=== PATIENT | female | born 1990 | race American Indian/Alaskan Native ===

== ENCOUNTER 2018-08-26 21:13 | Emergency (ER) | payer MEDICAID ==
[2018-08-26 23:24] VITALS: BP 99/75
--- NOTE | 2018-08-27 01:51 | Emergency Department Report ---
ED Rash HPI - HPI Chief Complaint: Skin Rash Stated Complaint: RASH/FRANCIS Time Seen by Provider: 08/27/18 01:28 Location: Neck, Upper Extremities, Lower Extremities Suspected Cause: Unknown (scabies exposure ) Rash Symptoms: Yes Itching, Yes Peeling, No Facial Swelling, No Tongue/Oral Swelling, No Breathing Difficulties, No Choking Sensation, No Wheezing/Dyspnea, No Blistering, No Fever, No Lightheaded, No Malaise, No Myalgias Severity: moderate Other History: scabies exposure ED Review of Systems ROS: Stated complaint: RASH/FRANCIS Other details as noted in HPI Constitutional: denies: chills, fever Eyes: denies: eye pain, eye discharge, vision change ENT: denies: ear pain, throat pain Respiratory: denies: cough, shortness of breath, wheezing Cardiovascular: denies: chest pain, palpitations Endocrine: no symptoms reported Gastrointestinal: denies: abdominal pain, nausea, diarrhea Genitourinary: denies: urgency, dysuria, discharge Musculoskeletal: denies: back pain, joint swelling, arthralgia Skin: rash (bilat hands feet waistline neck face exscoriations pruritis dry flaky ), pruritus Neurological: denies: headache, weakness, paresthesias Psychiatric: denies: anxiety, depression Hematological/Lymphatic: denies: easy bleeding, easy bruising ED Past Medical Hx - Past Medical History Previous Medical History?: No - Surgical History Past Surgical History?: Yes Additional Surgical History: - Social History Smoking Status: Current Every Day Smoker Substance Use Type: None - Medications Home Medications: Home Medications Medication Instructions Recorded Confirmed Last Taken Type Permethrin 5% [Acticin 5% CREAM] 1 applicatio TP ONCE #1 tube 08/27/18 Unknown Rx Piperonyl Butoxide/Pyrethrins [Rid 177 ml TP ONCE #1 bottle 08/27/18 Unknown Rx Essential Lice Kit] Triamcinolone Aceton 0.1% (Nf) 1 applic TP BID 14 Days #1 tube 08/27/18 Unknown Rx [Kenalog (NF)] hydrOXYzine HCL [Atarax] 25 mg PO Q6HR PRN #30 tablet 08/27/18 Unknown Rx Rash Exam - Exam General: Vital signs noted. No distress. Alert and acting appropriately. HEENT: No Periorbital Edema, No Conjuctival Injection, No Chemosis, No Perioral Edema, No Tongue Edema, No Uvular Edema, No Compromised Airway, No Drooling Lungs: Yes Good Air Exchange (Normal Breath Sounds), No Wheezes, No Ronchi, No Stridor, No Cough, No Labored Respirations, No Retractions, No Use of Accessory Muscles, No Other Abnormal Lung Sounds Heart: Yes Regular, No Murmur Skin: Yes Urticarial Rash, Yes Excoriations, Yes Weeping (clear ), Yes Erythema, Yes Encrustations, No Tenderness, No Edema Other: Positive: Abdomen Normal, Neurologic Normal, Musculoskeletal Normal ED Course Vital Signs 08/26/18 23:21 Temperature 97.8 F Pulse Rate 73 Respiratory 18 Rate Blood Pressure 99/75 O2 Sat by Pulse 100 Oximetry ED Medical Decision Making - Medical Decision Making this is a scabies exposure mother or 7 children 5 have been treated she presents with 2 children and self to be treated for scabies rash , pt given directions for permethrin tx, linen, clothing, matresses, and furniture care , pt verbalized agreement and under standing of discharge plan. Critical care attestation.: If time is entered above; I have spent that time in minutes in the direct care of this critically ill patient, excluding procedure time. ED Disposition Clinical Impression: Scabies exposure Disposition: - TO HOME OR SELFCARE Is pt being admited?: No Does the pt Need Aspirin: No Condition: Stable Instructions: Scabies (ED) Prescriptions: Permethrin 5% [Acticin 5% CREAM] 1 applicatio TP ONCE #1 tube hydrOXYzine HCL [Atarax] 25 mg PO Q6HR PRN #30 tablet PRN Reason: Itching Triamcinolone Aceton 0.1% (Nf) [Kenalog (NF)] 1 applic TP BID 14 Days #1 tube Piperonyl Butoxide/Pyrethrins [Rid Essential Lice Kit] 177 ml TP ONCE #1 bottle Referrals: [facility] [Outside] - 3-5 Days Forms: Work/School Release Form(ED) Time of Disposition: 01:56
== END 2018-08-27 02:00 | disposition home or self-care (01) ==
LOC: ED 21:13
DX: L29.9 Pruritus, unspecified (principal); Z20.89 Contact with and (suspected) exposure to other communicable diseases; F17.200 Nicotine dependence, unspecified, uncomplicated
CPT/HCPCS: 99282

== ENCOUNTER 2018-08-31 13:09 | Emergency (ER) | payer MEDICAID, OTHER ==
[2018-08-31 13:31] VITALS: BP 132/92
--- NOTE | 2018-08-31 13:32 | Emergency Department Report ---
Chief Complaint: Dental/Oral Stated Complaint: INFECTION ON GUMS/HEADACHE/VOMITING Time Seen by Provider: 08/31/18 13:29 - HPI History of Present Illness: pt presents to the ED left sided dental pain states she had a dental abscess and tooth extraction on 08/25/18 states she completed her amoxcillin yesterday but does not seem to be getting better pt also treated for scabies states that it has not gotten better [facility] MSE screening note: Focused history and physical exam performed. ED Disposition for MSE Condition: Stable
--- NOTE | 2018-08-31 14:45 | Emergency Department Report ---
ED ENT HPI - General Chief complaint: Dental/Oral Stated complaint: INFECTION ON GUMS/HEADACHE/VOMITING Time Seen by Provider: 08/31/18 13:29 Source: patient Mode of arrival: Ambulatory Limitations: No Limitations - History of Present Illness Initial comments: Patient is a 28-year-old female who is 4 days status post tooth extraction of tooth #13 who's complaining of pain at the dental extraction site. Patient states that her gums are now swollen and there is some ulceration of the gums. Patient states that the pain is 8 out of 10 in severity. She was placed on 4 days of amoxicillin which is not helping her symptoms. Patient denies having any pain meds at this time. Patient also states she has a rash to the face. She denies any nausea vomiting diarrhea fevers or chills. Patient states the rash in the face worsened after being treated for scabies. - Related Data Previous Rx's Medication Instructions Recorded Last Taken Type Permethrin 5% [Acticin 5% CREAM] 1 applicatio TP ONCE #1 tube 08/27/18 Unknown Rx Piperonyl Butoxide/Pyrethrins [Rid 177 ml TP ONCE #1 bottle 08/27/18 Unknown Rx Essential Lice Kit] Triamcinolone Aceton 0.1% (Nf) 1 applic TP BID 14 Days #1 tube 08/27/18 Unknown Rx [Kenalog (NF)] hydrOXYzine HCL [Atarax] 25 mg PO Q6HR PRN #30 tablet 08/27/18 Unknown Rx Chlorhexidine Mouthwash [Peridex] 15 ml MM BID #1 bottle 08/31/18 Unknown Rx Clindamycin [Clindamycin CAP] 300 mg PO Q8H #21 cap 08/31/18 Unknown Rx Ibuprofen [Ibu] 800 mg PO Q8H PRN #20 tablet 08/31/18 Unknown Rx Ondansetron [Zofran Odt] 4 mg PO Q8HR #10 tab.rapdis 08/31/18 Unknown Rx Allergies Allergy/AdvReac Type Severity Reaction Status Date / Time diphenhydramine Allergy Unknown Verified 08/26/18 21:16 [From Benadryl] tramadol Allergy Itching Verified 08/26/18 23:24 ED Dental HPI - General Chief complaint: Dental/Oral Stated complaint: INFECTION ON GUMS/HEADACHE/VOMITING Time Seen by Provider: 08/31/18 13:29 Source: patient Mode of arrival: Ambulatory Limitations: No Limitations - Related Data Previous Rx's Medication Instructions Recorded Last Taken Type Permethrin 5% [Acticin 5% CREAM] 1 applicatio TP ONCE #1 tube 08/27/18 Unknown Rx Piperonyl Butoxide/Pyrethrins [Rid 177 ml TP ONCE #1 bottle 08/27/18 Unknown Rx Essential Lice Kit] Triamcinolone Aceton 0.1% (Nf) 1 applic TP BID 14 Days #1 tube 08/27/18 Unknown Rx [Kenalog (NF)] hydrOXYzine HCL [Atarax] 25 mg PO Q6HR PRN #30 tablet 08/27/18 Unknown Rx Chlorhexidine Mouthwash [Peridex] 15 ml MM BID #1 bottle 08/31/18 Unknown Rx Clindamycin [Clindamycin CAP] 300 mg PO Q8H #21 cap 08/31/18 Unknown Rx Ibuprofen [Ibu] 800 mg PO Q8H PRN #20 tablet 08/31/18 Unknown Rx Ondansetron [Zofran Odt] 4 mg PO Q8HR #10 tab.rapdis 08/31/18 Unknown Rx Allergies Allergy/AdvReac Type Severity Reaction Status Date / Time diphenhydramine Allergy Unknown Verified 08/26/18 21:16 [From Benadryl] tramadol Allergy Itching Verified 08/26/18 23:24 ED Review of Systems ROS: Stated complaint: INFECTION ON GUMS/HEADACHE/VOMITING Other details as noted in HPI Comment: All other systems reviewed and negative ED Past Medical Hx - Past Medical History Previous Medical History?: No - Surgical History Additional Surgical History: - Social History Smoking Status: Never Smoker Substance Use Type: None - Medications Home Medications: Home Medications Medication Instructions Recorded Confirmed Last Taken Type Permethrin 5% [Acticin 5% CREAM] 1 applicatio TP ONCE #1 tube 08/27/18 Unknown Rx Piperonyl Butoxide/Pyrethrins [Rid 177 ml TP ONCE #1 bottle 08/27/18 Unknown Rx Essential Lice Kit] Triamcinolone Aceton 0.1% (Nf) 1 applic TP BID 14 Days #1 tube 08/27/18 Unknown Rx [Kenalog (NF)] hydrOXYzine HCL [Atarax] 25 mg PO Q6HR PRN #30 tablet 08/27/18 Unknown Rx Chlorhexidine Mouthwash [Peridex] 15 ml MM BID #1 bottle 08/31/18 Unknown Rx Clindamycin [Clindamycin CAP] 300 mg PO Q8H #21 cap 08/31/18 Unknown Rx Ibuprofen [Ibu] 800 mg PO Q8H PRN #20 tablet 08/31/18 Unknown Rx Ondansetron [Zofran Odt] 4 mg PO Q8HR #10 tab.rapdis 08/31/18 Unknown Rx ED Physical Exam - General Limitations: No Limitations General appearance: alert, in no apparent distress - Head Head exam: Present: atraumatic, normocephalic - Eye Eye exam: Present: normal appearance - ENT ENT exam: Present: mucous membranes moist - Expanded ENT Exam Expanded Mouth exam: Present: tongue normal Teeth exam: Present: dental tenderness # Throat exam: Positive: normal inspection (tooth #13 has been extracted. there is some small ulceration present. the gums are swollen and the socket has some local necrotic tissue present without active purulent drainage) - Neck Neck exam: Present: normal inspection - Respiratory Respiratory exam: Present: normal lung sounds bilaterally. Absent: respiratory distress, wheezes, rales, rhonchi - Cardiovascular Cardiovascular Exam: Present: regular rate, normal rhythm. Absent: systolic murmur, diastolic murmur, rubs, gallop - GI/Abdominal GI/Abdominal exam: Present: soft, normal bowel sounds. Absent: distended, tenderness, guarding - Extremities Exam Extremities exam: Present: normal inspection - Back Exam Back exam: Present: normal inspection - Neurological Exam Neurological exam: Present: alert, oriented X3 - Psychiatric Psychiatric exam: Present: normal affect, normal mood - Skin Skin exam: Present: warm, dry, intact, normal color, rash (hyperpigmented rash on the bilateral maxillary areas.) ED Course Vital Signs 08/31/18 13:28 Temperature 98.2 F Pulse Rate 96 H Respiratory 16 Rate Blood Pressure 132/92 O2 Sat by Pulse 99 Oximetry ED Medical Decision Making - Medical Decision Making Patient does appear to have an infection of the extraction site. Patient started on clindamycin and the patient was given Magic mouthwash as well. Patient also can be referred to dermatology for her facial rash. Rash is hyperpigmented rash and does not appear to be allergic in nature. Critical care attestation.: If time is entered above; I have spent that time in minutes in the direct care of this critically ill patient, excluding procedure time. ED Disposition Clinical Impression: Infection of tooth socket, Facial dermatitis Disposition: TO HOME OR SELFCARE Is pt being admited?: No Does the pt Need Aspirin: No Condition: Stable Referrals: [facility] [Provider Group] - 3-5 Days Time of Disposition: 14:48
== END 2018-08-31 14:57 | disposition home or self-care (01) ==
LOC: ED 13:09
DX: M27.3 Alveolitis of jaws (principal); L98.1 Factitial dermatitis; Z88.5 Allergy status to narcotic agent
CPT/HCPCS: 99282

== ENCOUNTER 2018-10-12 21:31 | Emergency (ER) | payer SELFPAY ==
[2018-10-12 21:41] VITALS: BP 129/95
[2018-10-12] MEDS ORDERED: NORCO 5/325 PO ONE (22:09)
[2018-10-12] MEDS ORDERED: IBUPROFEN PO ONE ×2 (22:09→22:10)
[2018-10-12] MEDS ORDERED: NORCO 5/325 ONE (22:10)
--- NOTE | 2018-10-13 00:51 | Emergency Department Report ---
ED Lower Extremity HPI - General Chief Complaint: Medical Clearance Stated Complaint: RT KNEE PAIN TAILBONE PAIN Source: patient Mode of arrival: Ambulatory Limitations: No Limitations - History of Present Illness Initial Comments: This is a 28-year-old [place] female presents to the emergency room with right knee and tailbone pain from a fall last Wednesday. Patient states she was seen in this emergency room and diagnosed with a tibial plateau fracture. Patient stated she had an appointment in orthopedic surgeon at [facility] but appointment continue to be rescheduled. She reports increasing pain. Patient states she is not applying weight to right lower extremity and using crutches as instructed. MD Complaint: knee injury (right) Onset/Timin -: days(s) Injury: Knee: Right Type of Injury: hyperflexion Place: street/outdoors Severity: severe Severity scale (0 -10): 10 Improves With: nothing Context: fall Associated Symptoms: snap/pop sensation, unable to bear weight, ambulatory - Related Data Previous Rx's Medication Instructions Recorded Last Taken Type Permethrin 5% [Acticin 5% CREAM] 1 applicatio TP ONCE #1 tube 08/27/18 Unknown Rx Piperonyl Butoxide/Pyrethrins [Rid 177 ml TP ONCE #1 bottle 08/27/18 Unknown Rx Essential Lice Kit] Triamcinolone Aceton 0.1% (Nf) 1 applic TP BID 14 Days #1 tube 08/27/18 Unknown Rx [Kenalog (NF)] hydrOXYzine HCL [Atarax] 25 mg PO Q6HR PRN #30 tablet 08/27/18 Unknown Rx Chlorhexidine Mouthwash [Peridex] 15 ml MM BID #1 bottle 08/31/18 Unknown Rx Clindamycin [Clindamycin CAP] 300 mg PO Q8H #21 cap 08/31/18 Unknown Rx Ibuprofen [Ibu] 800 mg PO Q8H PRN #20 tablet 08/31/18 Unknown Rx Ondansetron [Zofran Odt] 4 mg PO Q8HR #10 tab.rapdis 08/31/18 Unknown Rx Ketorolac [Toradol] 10 mg PO Q6H PRN #14 tablet 10/07/18 Unknown Rx oxyCODONE /ACETAMINOPHEN [Percocet 1 tab PO Q6HR PRN #8 tablet 10/13/18 Unknown Rx 5/325 mg] Allergies Allergy/AdvReac Type Severity Reaction Status Date / Time diphenhydramine Allergy Unknown Verified 10/07/18 19:23 [From Benadryl] tramadol Allergy Itching Verified 10/07/18 19:23 ED Review of Systems ROS: Stated complaint: RT KNEE PAIN TAILBONE PAIN Other details as noted in HPI Constitutional: denies: chills, fever Respiratory: denies: cough, shortness of breath, wheezing Cardiovascular: denies: chest pain, palpitations Gastrointestinal: denies: abdominal pain, nausea, diarrhea Musculoskeletal: arthralgia (right knee pain). denies: back pain, joint swelling Skin: denies: rash, lesions Neurological: denies: headache, weakness, paresthesias Psychiatric: denies: anxiety, depression ED Past Medical Hx - Surgical History Additional Surgical History: - Social History Smoking Status: Never Smoker - Medications Home Medications: Home Medications Medication Instructions Recorded Confirmed Last Taken Type Permethrin 5% [Acticin 5% CREAM] 1 applicatio TP ONCE #1 tube 08/27/18 Unknown Rx Piperonyl Butoxide/Pyrethrins [Rid 177 ml TP ONCE #1 bottle 08/27/18 Unknown Rx Essential Lice Kit] Triamcinolone Aceton 0.1% (Nf) 1 applic TP BID 14 Days #1 tube 08/27/18 Unknown Rx [Kenalog (NF)] hydrOXYzine HCL [Atarax] 25 mg PO Q6HR PRN #30 tablet 08/27/18 Unknown Rx Chlorhexidine Mouthwash [Peridex] 15 ml MM BID #1 bottle 08/31/18 Unknown Rx Clindamycin [Clindamycin CAP] 300 mg PO Q8H #21 cap 08/31/18 Unknown Rx Ibuprofen [Ibu] 800 mg PO Q8H PRN #20 tablet 08/31/18 Unknown Rx Ondansetron [Zofran Odt] 4 mg PO Q8HR #10 tab.rapdis 08/31/18 Unknown Rx Ketorolac [Toradol] 10 mg PO Q6H PRN #14 tablet 10/07/18 Unknown Rx oxyCODONE /ACETAMINOPHEN [Percocet 1 tab PO Q6HR PRN #8 tablet 10/13/18 Unknown Rx 5/325 mg] ED Physical Exam - General Limitations: No Limitations General appearance: alert, in no apparent distress - Respiratory Respiratory exam: Present: normal lung sounds bilaterally. Absent: respiratory distress - Cardiovascular Cardiovascular Exam: Present: regular rate, normal rhythm. Absent: systolic murmur, diastolic murmur, rubs, gallop - GI/Abdominal GI/Abdominal exam: Present: soft, normal bowel sounds - Expanded Lower Extremity Exam Right Hip exam: Present: normal inspection, full ROM Upper Leg exam: Present: normal inspection, full ROM Knee exam: Present: tenderness, swelling, pain w/ pronation/supination, posterior draw sign, full knee extension. Absent: full ROM, abrasion, laceration, ecchymosis, deformity, crepidus, dislocation, erythema, effusion Lower Leg exam: Present: normal inspection, full ROM Ankle exam: Present: normal inspection, full ROM Foot/Toe exam: Present: normal inspection, full ROM Neuro vascular tendon exam: Present: no vascular compromise. Absent: extremity cold to touch, pallor, abnormal 2-point discrimination Gait: Positive: unable to bear weight - Neurological Exam Neurological exam: Present: alert, oriented X3 - Psychiatric Psychiatric exam: Present: normal affect, normal mood - Skin Skin exam: Present: warm, dry, intact, normal color. Absent: rash ED Course Vital Signs 10/12/18 10/13/18 21:39 03:14 Temperature 100.1 F H 98.6 F Pulse Rate 100 H 79 Respiratory 18 17 Rate Blood Pressure 129/95 O2 Sat by Pulse 100 100 Oximetry ED Lower Extremity MDM - Medical Decision Making Patient was examined by me. Vitals are normal and patient is in no acute distress. Patient seen in this ER on 10/08/18 and diagnosed with an acute comminuted depressed right medial tibial plateau fracture. Patient states she does not have insurance and having a hard time getting in to orthopedics for follow-up. Patient denies new symptoms. She is requesting pain control until she follow up with orthopedics. Start [place] 5/325 mg by mouth every 6 hours when necessary #8, 0 refills. Referral to orthopedics for continued care. Continue nonweightbearing to right lower extremity. Informed of risk and possible decreased blood supply to right lower extremity if she doesn't follow up with Orthopedics soon. She agrees with ER plan. Patient discharged home in stable condition. Follow up with PCP in 2-3 days. Critical care attestation.: If time is entered above; I have spent that time in minutes in the direct care of this critically ill patient, excluding procedure time. ED Disposition Clinical Impression: Right knee pain Qualifiers: Chronicity: acute Qualified Code(s): M25.561 - Pain in right knee Tibial plateau fracture, right Qualifiers: Encounter type: subsequent encounter Fracture type: closed Fracture healing: with delayed healing Qualified Code(s): S82.141G - Displaced bicondylar fracture of right tibia, subsequent encounter for closed fracture with delayed healing Disposition: TO HOME OR SELFCARE Is pt being admited?: No Does the pt Need Aspirin: No Condition: Stable Instructions: Arthralgia (ED) Additional Instructions: Follow-up with orthopedics from the referrals below. Return to the emergency room if warmth, increased swelling, redness, uncontrolled pain. Prescriptions: oxyCODONE /ACETAMINOPHEN [Percocet 5/325 mg] 1 tab PO Q6HR PRN #8 tablet PRN Reason: Pain Referrals: [facility] [Provider Group] - 3-5 Days [facility] [Provider Group] - 3-5 Days COLTEN GALLAGHER MD [Staff Physician] - 3-5 Days Forms: Accompanied Note, Work/School Release Form(ED) Time of Disposition: 02:29
[2018-10-13] MEDS ORDERED: TYLENOL ONE (03:03)
[2018-10-13] MEDS ORDERED: TYLENOL PO ONE (03:04)
== END 2018-10-13 03:14 | disposition home or self-care (01) ==
LOC: ED 21:31
DX: S82.141G Displaced bicondylar fracture of right tibia, subsequent encounter for closed fracture with delayed healing (principal); Z88.8 Allergy status to other drugs, medicaments and biological substances; Z88.6 Allergy status to analgesic agent; Y92.89 Other specified places as the place of occurrence of the external cause

== ENCOUNTER 2018-11-06 19:13 | Emergency (ER) | payer MEDICAID, OTHER ==
--- NOTE | 2018-11-06 19:36 | Emergency Department Report ---
Blank Doc - Documentation Documentation: This is a 28-year-old female that presents with abdominal pain with n/v. Also has right knee pain and see a orthopedic for. This initial assessment/diagnostic orders/clinical plan/treatment(s) is/are subject to change based on patient's health status, clinical progression and re- assessment by fellow clinical providers in the ED. Further treatment and workup at subsequent clinical providers discretion. Patient/guardians urged not to elope from the ED as their condition may be serious if not clinically assessed and managed. Initial orders include: 1- Patient sent to [facility] for further evaluation and treatment 2- labs 3- UA
[2018-11-06 20:16] LABS: Alanine Aminotransferase 6 units/L (7-56); Albumin 4.1 g/dL (3.9-5); BUN/Creatinine Ratio 17; Blood Urea Nitrogen 12 mg/dL (7-17); Calcium 9.1 mg/dL (8.4-10.2); Hemolysis Index 1
[2018-11-06 20:41] LABS: Basophils % (Auto) 0.8 % (0.0-1.8); Eosinophils # (Auto) 0.1 K/mm3 (0.0-0.4); Eosinophils % (Auto) 1.4 % (0.0-4.3); Hematocrit 34.8 % (30.3-42.9); Hemoglobin 11.8 gm/dl (10.1-14.3); Lymphocytes # (Auto) 1.8 K/mm3 (1.2-5.4); Lymphocytes % (Auto) 29.8 % (13.4-35.0); Mean Corpuscular HGB Conc 34 % (30-34); Mean Corpuscular Volume 74 fl (79-97); Monocytes # (Auto) 0.3 K/mm3 (0.0-0.8); Monocytes % (Auto) 4.9 % (0.0-7.3); Platelet Count 221 K/mm3 (140-440); Red Blood Count 4.74 M/mm3 (3.65-5.03); Red Cell Distribution Width 20.9 % (13.2-15.2)
[2018-11-06] MEDS ORDERED: ZOFRAN ODT PO ONE (21:03)
[2018-11-06] MEDS ORDERED: ULTRAM PO ONE (21:03)
[2018-11-06] MEDS ORDERED: BENTYL IM ONE (21:05)
--- NOTE | 2018-11-06 21:24 | Emergency Department Report ---
ED N/V/D HPI - General Chief complaint: Abdominal Pain Stated complaint: ABD PAIN/EMESIS Time Seen by Provider: 11/06/18 19:35 Source: patient Mode of arrival: Ambulatory Limitations: No Limitations - History of Present Illness Initial comments: pt is a 28 y/o aaf who presents for n/v x 1 week LMP 2 weeks is s/p tubaligation there is no vaginal bleeding or discharge no fever or chlls state she is taking percocet for knee pain rx by ortho, denies constipation or diarrhea last n/v yesterday last po intake this am MD complaint: nausea, vomiting, other (cramp ) Description of Vomiting: food contents Description of Diarrhea: other (none ) Associated Abdominal Pain: Yes (cramping) Location: LLQ Severity: mild Pain Scale: 2 Quality: cramping Consistency: intermittent Improves with: none Worsens with: eating Associated Symptoms: nausea/vomiting - Related Data Previous Rx's Medication Instructions Recorded Last Taken Type Permethrin 5% [Acticin 5% CREAM] 1 applicatio TP ONCE #1 tube 08/27/18 Unknown Rx Piperonyl Butoxide/Pyrethrins [Rid 177 ml TP ONCE #1 bottle 08/27/18 Unknown Rx Essential Lice Kit] Triamcinolone Aceton 0.1% (Nf) 1 applic TP BID 14 Days #1 tube 08/27/18 Unknown Rx [Kenalog (NF)] hydrOXYzine HCL [Atarax] 25 mg PO Q6HR PRN #30 tablet 08/27/18 Unknown Rx Chlorhexidine Mouthwash [Peridex] 15 ml MM BID #1 bottle 08/31/18 Unknown Rx Clindamycin [Clindamycin CAP] 300 mg PO Q8H #21 cap 08/31/18 Unknown Rx Ibuprofen [Ibu] 800 mg PO Q8H PRN #20 tablet 08/31/18 Unknown Rx Ondansetron [Zofran Odt] 4 mg PO Q8HR #10 tab.rapdis 08/31/18 Unknown Rx Ketorolac [Toradol] 10 mg PO Q6H PRN #14 tablet 10/07/18 Unknown Rx oxyCODONE /ACETAMINOPHEN [Percocet 1 tab PO Q6HR PRN #8 tablet 10/13/18 Unknown Rx 5/325 mg] Acetaminophen [Acetaminophen TAB] 1,000 mg PO Q6HR PRN #30 tablet 11/07/18 Unknown Rx Dicyclomine [Bentyl] 10 mg PO QID PRN #30 capsule 11/07/18 Unknown Rx Ondansetron [Zofran Odt] 4 mg PO Q8HR PRN #12 tab.rapdis 11/07/18 Unknown Rx Allergies Allergy/AdvReac Type Severity Reaction Status Date / Time diphenhydramine Allergy Unknown Verified 10/07/18 19:23 [From Benadryl] tramadol Allergy Itching Verified 10/07/18 19:23 ED Review of Systems ROS: Stated complaint: ABD PAIN/EMESIS Other details as noted in HPI Constitutional: denies: chills, fever Eyes: denies: eye pain, eye discharge, vision change ENT: denies: ear pain, throat pain Respiratory: denies: cough, shortness of breath, wheezing Cardiovascular: denies: chest pain, palpitations Endocrine: no symptoms reported Gastrointestinal: abdominal pain, nausea, vomiting. denies: diarrhea, constipation, melena Genitourinary: as per HPI. denies: urgency, dysuria, frequency Musculoskeletal: other (knee pain ). denies: back pain, joint swelling, arthralgia Skin: denies: rash, lesions Neurological: denies: headache, weakness, paresthesias Psychiatric: denies: anxiety, depression Hematological/Lymphatic: denies: easy bleeding, easy bruising ED Past Medical Hx - Past Medical History Previous Medical History?: Yes Additional medical history: Broken Right Knee cap 09/28/18 - Surgical History Additional Surgical History: - Social History Smoking Status: Current Every Day Smoker Substance Use Type: None - Medications Home Medications: Home Medications Medication Instructions Recorded Confirmed Last Taken Type Permethrin 5% [Acticin 5% CREAM] 1 applicatio TP ONCE #1 tube 08/27/18 Unknown Rx Piperonyl Butoxide/Pyrethrins [Rid 177 ml TP ONCE #1 bottle 08/27/18 Unknown Rx Essential Lice Kit] Triamcinolone Aceton 0.1% (Nf) 1 applic TP BID 14 Days #1 tube 08/27/18 Unknown Rx [Kenalog (NF)] hydrOXYzine HCL [Atarax] 25 mg PO Q6HR PRN #30 tablet 08/27/18 Unknown Rx Chlorhexidine Mouthwash [Peridex] 15 ml MM BID #1 bottle 08/31/18 Unknown Rx Clindamycin [Clindamycin CAP] 300 mg PO Q8H #21 cap 08/31/18 Unknown Rx Ibuprofen [Ibu] 800 mg PO Q8H PRN #20 tablet 08/31/18 Unknown Rx Ondansetron [Zofran Odt] 4 mg PO Q8HR #10 tab.rapdis 08/31/18 Unknown Rx Ketorolac [Toradol] 10 mg PO Q6H PRN #14 tablet 10/07/18 Unknown Rx oxyCODONE /ACETAMINOPHEN [Percocet 1 tab PO Q6HR PRN #8 tablet 10/13/18 Unknown Rx 5/325 mg] Acetaminophen [Acetaminophen TAB] 1,000 mg PO Q6HR PRN #30 tablet 11/07/18 Unknown Rx Dicyclomine [Bentyl] 10 mg PO QID PRN #30 capsule 11/07/18 Unknown Rx Ondansetron [Zofran Odt] 4 mg PO Q8HR PRN #12 tab.rapdis 11/07/18 Unknown Rx ED Physical Exam - General Limitations: No Limitations General appearance: alert, in no apparent distress - Head Head exam: Present: atraumatic, normocephalic - Eye Eye exam: Present: normal appearance, PERRL, EOMI Pupils: Present: normal accommodation - ENT ENT exam: Present: mucous membranes moist - Neck Neck exam: Present: normal inspection - Respiratory Respiratory exam: Present: normal lung sounds bilaterally. Absent: respiratory distress, wheezes, stridor, chest wall tenderness - Cardiovascular Cardiovascular Exam: Present: regular rate, normal rhythm, normal heart sounds. Absent: systolic murmur, diastolic murmur, rubs, gallop - GI/Abdominal GI/Abdominal exam: Present: soft, normal bowel sounds. Absent: distended, tenderness, guarding, rebound, rigid, bruit, hernia - Rectal Rectal exam: Present: deferred - Back Exam Back exam: Present: normal inspection, full ROM, tenderness. Absent: CVA tenderness (R), CVA tenderness (L), muscle spasm, rash noted - Neurological Exam Neurological exam: Present: alert, oriented X3, CN II-XII intact, normal gait - Psychiatric Psychiatric exam: Present: normal affect, normal mood - Skin Skin exam: Present: warm, dry, intact, normal color. Absent: rash ED Course Vital Signs 11/06/18 19:35 Temperature 98.9 F Pulse Rate 99 H Respiratory 16 Rate Blood Pressure 112/72 Blood Pressure 112/72 [Left] O2 Sat by Pulse 100 Oximetry ED Medical Decision Making - Lab Data Result diagrams: 11/06/18 19:42 11/06/18 19:42 Lab Results 11/06/18 11/06/18 11/06/18 Range/Units 19:42 19:42 19:42 WBC 5.9 (4.5-11.0) K/mm3 RBC 4.74 (3.65-5.03) M/mm3 Hgb 11.8 (10.1-14.3) gm/dl Hct 34.8 (30.3-42.9) % MCV 74 L (79-97) fl MCH 25 L (28-32) pg MCHC 34 (30-34) % RDW 20.9 H (13.2-15.2) % Plt Count 221 (140-440) K/mm3 Lymph % (Auto) 29.8 (13.4-35.0) % [place] % (Auto) 4.9 (0.0-7.3) % Eos % (Auto) 1.4 (0.0-4.3) % Baso % (Auto) 0.8 (0.0-1.8) % Lymph # 1.8 (1.2-5.4) K/mm3 [place] # 0.3 (0.0-0.8) K/mm3 Eos # 0.1 (0.0-0.4) K/mm3 Baso # 0.0 (0.0-0.1) K/mm3 Seg Neutrophils % 63.1 (40.0-70.0) % Seg Neutrophils # 3.7 (1.8-7.7) K/mm3 Sodium 141 (137-145) mmol/L Potassium 3.4 L (3.6-5.0) mmol/L Chloride 100.3 (98-107) mmol/L Carbon Dioxide 29 (22-30) mmol/L Anion Gap 15 mmol/L BUN 12 (7-17) mg/dL Creatinine 0.7 (0.7-1.2) mg/dL Estimated GFR > 60 ml/min BUN/Creatinine Ratio 17 % Glucose 90 (65-100) mg/dL Calcium 9.1 (8.4-10.2) mg/dL Total Bilirubin 0.30 (0.1-1.2) mg/dL AST 22 (5-40) units/L ALT 6 L (7-56) units/L Alkaline Phosphatase 85 (35-129) units/L Total Protein 7.6 (6.3-8.2) g/dL Albumin 4.1 (3.9-5) g/dL Albumin/Globulin Ratio 1.2 % Lipase 34 (13-60) units/L HCG, Qual Negative (Negative) Urine Bilirubin (Negative) Urine RBC (Auto) (0.0-6.0) /HPF U Epithel Cells (Auto) (0-13.0) /HPF Urine Sperm (MANAGER CASH) /HPF 11/06/18 Range/Units 23:12 WBC (4.5-11.0) K/mm3 RBC (3.65-5.03) M/mm3 Hgb (10.1-14.3) gm/dl Hct (30.3-42.9) % MCV (79-97) fl MCH (28-32) pg MCHC (30-34) % RDW (13.2-15.2) % Plt Count (140-440) K/mm3 Lymph % (Auto) (13.4-35.0) % [place] % (Auto) (0.0-7.3) % Eos % (Auto) (0.0-4.3) % Baso % (Auto) (0.0-1.8) % Lymph # (1.2-5.4) K/mm3 [place] # (0.0-0.8) K/mm3 Eos # (0.0-0.4) K/mm3 Baso # (0.0-0.1) K/mm3 Seg Neutrophils % (40.0-70.0) % Seg Neutrophils # (1.8-7.7) K/mm3 Sodium (137-145) mmol/L Potassium (3.6-5.0) mmol/L Chloride (98-107) mmol/L Carbon Dioxide (22-30) mmol/L Anion Gap mmol/L BUN (7-17) mg/dL Creatinine (0.7-1.2) mg/dL Estimated GFR ml/min BUN/Creatinine Ratio % Glucose (65-100) mg/dL Calcium (8.4-10.2) mg/dL Total Bilirubin (0.1-1.2) mg/dL AST (5-40) units/L ALT (7-56) units/L Alkaline Phosphatase (35-129) units/L Total Protein (6.3-8.2) g/dL Albumin (3.9-5) g/dL Albumin/Globulin Ratio % Lipase (13-60) units/L HCG, Qual (Negative) Urine Bilirubin Neg (Negative) Urine RBC (Auto) 1.0 (0.0-6.0) /HPF U Epithel Cells (Auto) 4.0 (0-13.0) /HPF Urine Sperm Few (MANAGER CASH) /HPF - Radiology Data Radiology results: report reviewed, image reviewed Ordering Physician: NARAYAN GALAN NP Date of Service: 11/06/18 Procedure(s): XR abdomen 1V ap Accession Number(s): [id number] cc: NARAYAN GALAN NP Fluoro Time In Minutes: PROCEDURE: XR ABDOMEN 1V AP TECHNIQUE: Abdominal radiograph, single view. HISTORY: abd pain n/v COMPARISONS: None . FINDINGS: The bowel gas pattern is nonobstructive. There is no evidence of organomegaly and no definite evidence of pneumoperitoneum. The entirety of the upper abdomen is not imaged. The bony structures are unremarkable. IMPRESSION: 1. No plain film evidence of an acute intra-abdominal process. If there is a clinical concern of an acute intra-abdominal process, CT imaging may be helpful. This document is electronically signed by Alice Raygoza MD., November 06 2018 09:34:11 PM ET Transcribed By: ED Dictated By: ALICE RAYGOZA MD Electronically Authenticated By: ALICE RAYGOZA MD Signed Date/Time: 11/06/182134 DD/ 24 TD/TT: 11/06/182124 - Medical Decision Making X-ray normal gas pattern UA was normal and hCG is negative patient is status post tubal ligation CBC and CMP are normal symptoms are improved with medications given in ed plan: dc to home with rx for bentyl, reglan, naproxen pt will follow up with pcp in 2-3 days return to ed if symptoms worsen, pt verbalized agreement and understanding of discharge plan. pt is currently tolerating po intake without symptoms. Critical care attestation.: If time is entered above; I have spent that time in minutes in the direct care of this critically ill patient, excluding procedure time. ED Disposition Clinical Impression: Nausea and vomiting Qualifiers: Vomiting type: unspecified Vomiting Intractability: non-intractable Qualified Code(s): R11.2 - Nausea with vomiting, unspecified Disposition: TO HOME OR SELFCARE Is pt being admited?: No Does the pt Need Aspirin: No Condition: Stable Instructions: Abdominal Pain (ED), Acute Nausea and Vomiting (ED) Prescriptions: Acetaminophen [Acetaminophen TAB] 1,000 mg PO Q6HR PRN #30 tablet PRN Reason: pain Dicyclomine [Bentyl] 10 mg PO QID PRN #30 capsule PRN Reason: abdominal spasm Ondansetron [Zofran Odt] 4 mg PO Q8HR PRN #12 tab.rapdis PRN Reason: Nausea And Vomiting Referrals: [facility] [Primary Care Provider] - 3-5 Days [facility] [Outside] - 3-5 Days Forms: Work/School Release Form(ED) Time of Disposition: 00:11
--- NOTE | 2018-11-06 21:35 | XRay Report ---
PROCEDURE: XR ABDOMEN 1V AP TECHNIQUE: Abdominal radiograph, single view. HISTORY: abd pain n/v COMPARISONS: None . FINDINGS: The bowel gas pattern is nonobstructive. There is no evidence of organomegaly and no definite evidence of pneumoperitoneum. The entirety of th e upper abdomen is not imaged. The bony structures are unremarkable. IMPRESSION: 1. No plain film evidence of an acute intra-abdominal process. If there is a clinical concern of an acute intra-abdominal process, CT imaging may be helpful. This document is electronically signed by Alice Raygoza MD., November 06 2018 09:34:11 PM ET
[2018-11-06] MEDS ORDERED: TYLENOL PO ONE (21:36)
[2018-11-06] MEDS ORDERED: NACL 0.9% 1000 ML 1,000 ML IV ONE (21:40)
[2018-11-07] LABS: Bilirubin,Urine NEG (Negative); Blood,Urine NEG (Negative); Color,Urine Yellow (Yellow); Mucus,Urine 3+ /HPF; Protein,Urine <15 mg/dL mg/dL (Negative); Sperm,Urine FEW /HPF (NP); Urobilinogen,Urine < 2.0 mg/dL (<2.0); WBC,Urine < 1.0 /HPF (0.0-6.0)
[2018-11-07 00:32] VITALS: BP 94/61
== END 2018-11-07 00:33 | disposition home or self-care (01) ==
LOC: ED 19:13
DX: R11.2 Nausea with vomiting, unspecified (principal); R10.32 Left lower quadrant pain; F17.200 Nicotine dependence, unspecified, uncomplicated; Z88.8 Allergy status to other drugs, medicaments and biological substances; Z88.6 Allergy status to analgesic agent
CPT/HCPCS: 36415; 74018; 80053; 81001; 83690; 84703; 85025; 96360; 96372; 99284; J0500; J7030; Q0162

== ENCOUNTER 2019-07-21 12:32 | Emergency (ER) | payer OTHER ==
--- NOTE | 2019-07-21 14:13 | Event Note ---
ED Screening Note Date of service: 07/21/19 Time: 14:10 ED Screening Note: This is a 29 y.o. F. that presents to the ER with right wrist pain. Patient states she had a ground level fall last night. LMP 07/03/19 This initial assessment/diagnostic orders/clinical plan/treatment(s) is/are subject to change based on patients health status, clinical progression and re- assessment by fellow clinical providers in the ED. Further treatment and workup at subsequent clinical providers discretion. Patient/guardian urged not to elope from the ED as their condition may be serious if not clinically assessed and managed. Initial orders include: XR right wrist
--- NOTE | 2019-07-21 14:43 | XRay Report ---
RIGHT WRIST 3 VIEWS INDICATION: swelling, pain, deformity, r/o fx. COMPARISON: None. IMPRESSION: There is mild soft tissue swelling at the level of the wrist. There is a very subtle cor tical defect seen on the lateral view only involving the dorsal surface of the distal radius consiste nt with a nondisplaced fracture. No joint pathology is appreciated. Signer Name: Aydin Mendoza Jr, MD Signed: 07/21/2019 2:39 PM Workstation Name: [id number]
--- NOTE | 2019-07-21 15:37 | Emergency Department Report ---
ED Extremity Problem HPI - General Chief complaint: Extremity Injury, Upper Stated complaint: RT HAND/RT ARM PAIN Time Seen by Provider: 07/21/19 14:10 Source: patient Mode of arrival: Ambulatory Limitations: No Limitations - History of Present Illness Initial comments: Patient is a 29-year-old F [place] female who suffered a fall last night. Patient states the ground was very wet from rain and friend of hers started to slip and she tried to help her friend not fall and she ended up falling herself. Patient fell on her right wrist. She has swelling and decreased range of motion. Patient states the pain is achy 8 out of 10 in severity and is worse with movement better with rest. - Related Data Previous Rx's Medication Instructions Recorded Last Taken Type Permethrin 5% [Acticin 5% CREAM] 1 applicatio TP ONCE #1 tube 08/27/18 Unknown Rx Piperonyl Butoxide/Pyrethrins [Rid 177 ml TP ONCE #1 bottle 08/27/18 Unknown Rx Essential Lice Kit] Triamcinolone Aceton 0.1% (Nf) 1 applic TP BID 14 Days #1 tube 08/27/18 Unknown Rx [Kenalog (NF)] hydrOXYzine HCL [Atarax] 25 mg PO Q6HR PRN #30 tablet 08/27/18 Unknown Rx Chlorhexidine Mouthwash [Peridex] 15 ml MM BID #1 bottle 08/31/18 Unknown Rx Clindamycin [Clindamycin CAP] 300 mg PO Q8H #21 cap 08/31/18 Unknown Rx Ibuprofen [Ibu] 800 mg PO Q8H PRN #20 tablet 08/31/18 Unknown Rx Ondansetron [Zofran Odt] 4 mg PO Q8HR #10 tab.rapdis 08/31/18 Unknown Rx Ketorolac [Toradol] 10 mg PO Q6H PRN #14 tablet 10/07/18 Unknown Rx oxyCODONE /ACETAMINOPHEN [Percocet 1 tab PO Q6HR PRN #8 tablet 10/13/18 Unknown Rx 5/325 mg] Acetaminophen [Acetaminophen TAB] 1,000 mg PO Q6HR PRN #30 tablet 11/07/18 Unknown Rx Dicyclomine [Bentyl] 10 mg PO QID PRN #30 capsule 11/07/18 Unknown Rx Ondansetron [Zofran Odt] 4 mg PO Q8HR PRN #12 tab.rapdis 11/07/18 Unknown Rx Ibuprofen [Motrin 600 MG tab] 600 mg PO Q8H PRN #20 tablet 07/21/19 Unknown Rx Allergies Allergy/AdvReac Type Severity Reaction Status Date / Time diphenhydramine Allergy Unknown Verified 10/07/18 19:23 [From Benadryl] tramadol Allergy Itching Verified 10/07/18 19:23 ED Review of Systems ROS: Stated complaint: RT HAND/RT ARM PAIN Other details as noted in HPI Comment: All other systems reviewed and negative ED Past Medical Hx - Past Medical History Previous Medical History?: No Additional medical history: Broken Right Knee cap 09/28/18 - Surgical History Additional Surgical History: - Social History Smoking Status: Current Every Day Smoker - Medications Home Medications: Home Medications Medication Instructions Recorded Confirmed Last Taken Type Permethrin 5% [Acticin 5% CREAM] 1 applicatio TP ONCE #1 tube 08/27/18 Unknown Rx Piperonyl Butoxide/Pyrethrins [Rid 177 ml TP ONCE #1 bottle 08/27/18 Unknown Rx Essential Lice Kit] Triamcinolone Aceton 0.1% (Nf) 1 applic TP BID 14 Days #1 tube 08/27/18 Unknown Rx [Kenalog (NF)] hydrOXYzine HCL [Atarax] 25 mg PO Q6HR PRN #30 tablet 08/27/18 Unknown Rx Chlorhexidine Mouthwash [Peridex] 15 ml MM BID #1 bottle 08/31/18 Unknown Rx Clindamycin [Clindamycin CAP] 300 mg PO Q8H #21 cap 08/31/18 Unknown Rx Ibuprofen [Ibu] 800 mg PO Q8H PRN #20 tablet 08/31/18 Unknown Rx Ondansetron [Zofran Odt] 4 mg PO Q8HR #10 tab.rapdis 08/31/18 Unknown Rx Ketorolac [Toradol] 10 mg PO Q6H PRN #14 tablet 10/07/18 Unknown Rx oxyCODONE /ACETAMINOPHEN [Percocet 1 tab PO Q6HR PRN #8 tablet 10/13/18 Unknown Rx 5/325 mg] Acetaminophen [Acetaminophen TAB] 1,000 mg PO Q6HR PRN #30 tablet 11/07/18 Unknown Rx Dicyclomine [Bentyl] 10 mg PO QID PRN #30 capsule 11/07/18 Unknown Rx Ondansetron [Zofran Odt] 4 mg PO Q8HR PRN #12 tab.rapdis 11/07/18 Unknown Rx Ibuprofen [Motrin 600 MG tab] 600 mg PO Q8H PRN #20 tablet 07/21/19 Unknown Rx ED Physical Exam - General Limitations: No Limitations General appearance: alert, in no apparent distress - Head Head exam: Present: atraumatic, normocephalic - Eye Eye exam: Present: normal appearance - ENT ENT exam: Present: mucous membranes moist - Neck Neck exam: Present: normal inspection - Respiratory Respiratory exam: Absent: respiratory distress - Extremities Exam Extremities exam: Present: normal inspection, tenderness - Expanded Upper Extremity Exam Right Elbow exam: Present: normal inspection, full ROM Forearm Wrist exam: Present: tenderness, swelling (At the distal radius). Absent: deformity, erythema, tenderness over anatomical snuff box Vascular: Present: normal capillary refill. Absent: vascular compromise, Pallo - Back Exam Back exam: Present: normal inspection - Neurological Exam Neurological exam: Present: alert, oriented X3 - Psychiatric Psychiatric exam: Present: normal affect, normal mood - Skin Skin exam: Present: warm, dry, intact, normal color. Absent: rash ED Course Vital Signs 07/21/19 12:36 Temperature 98.8 F Pulse Rate 101 H Respiratory 18 Rate Blood Pressure 116/83 O2 Sat by Pulse 100 Oximetry ED Medical Decision Making - Radiology Data Ordering Physician: REJI HICKS Date of Service: 07/21/19 Procedure(s): XR wrist 3+V RT Accession Number(s): [id number] cc: REJI HICKS Fluoro Time In Minutes: RIGHT WRIST 3 VIEWS INDICATION: swelling, pain, deformity, r/o fx. COMPARISON: None. IMPRESSION: There is mild soft tissue swelling at the level of the wrist. There is a very subtle cortical defect seen on the lateral view only involving the dorsal surface of the distal radius consistent with a nondisplaced fracture. No joint pathology is appreciated. Signer Name: Aydin Mendoza Jr, MD Signed: 07/21/2019 2:39 PM Workstation Name: [id number] - Medical Decision Making Patient is has difficulty and pain with supination and pronation. Patient will be placed in a sugar tong splint and will be given orthopedics for follow-up. Critical care attestation.: If time is entered above; I have spent that time in minutes in the direct care of this critically ill patient, excluding procedure time. ED Disposition Clinical Impression: Distal radial fracture Qualifiers: Encounter type: initial encounter Fracture type: closed Fracture morphology: unspecified fracture morphology Laterality: right Qualified Code(s): S52.501A - Unspecified fracture of the lower end of right radius, initial encounter for closed fracture Disposition: TO HOME OR SELFCARE Is pt being admited?: No Does the pt Need Aspirin: No Condition: Stable Instructions: Wrist Fracture in Adults (ED) Referrals: PRIMARY CARE, [Primary Care Provider] - 3-[address] [facility] [Provider Group] - 3-5 Days Time of Disposition: 15:55
[2019-07-21] MEDS ORDERED: IBUPROFEN 600 MG TAB PO ONE ×2 (16:06→16:08)
[2019-07-21 16:23] VITALS: BP 112/78
== END 2019-07-21 16:22 | disposition home or self-care (01) ==
LOC: ED 12:32
DX: S52.501A Unspecified fracture of the lower end of right radius, initial encounter for closed fracture (principal); F17.200 Nicotine dependence, unspecified, uncomplicated; Z98.890 Other specified postprocedural states; Z79.1 Long term (current) use of non-steroidal anti-inflammatories (NSAID); Z79.899 Other long term (current) drug therapy; Z88.8 Allergy status to other drugs, medicaments and biological substances; W01.0XXA Fall on same level from slipping, tripping and stumbling without subsequent striking against object, initial encounter; Y93.89 Activity, other specified; Y92.89 Other specified places as the place of occurrence of the external cause; Y99.8 Other external cause status

== ENCOUNTER 2019-08-31 06:23 | Emergency (ER) | payer OTHER ==
[2019-08-31] MEDS ORDERED: predniSONE 20 MG TAB PO ONE (08:16)
[2019-08-31] MEDS ORDERED: CLINDAMYCIN 300 MG CAP PO ONE (08:16)
[2019-08-31] MEDS ORDERED: ACETAMINOPHEN W/CODEINE 300-30 MG TAB PO ONE (08:16)
[2019-08-31] MEDS ORDERED: LIDOCAINE VISCOUS 2% 15 ML ORAL LIQD PO ONE (08:32)
--- NOTE | 2019-08-31 08:32 | Emergency Department Report ---
ED ENT HPI - General Chief complaint: Dental/Oral Stated complaint: TOOTHACHE Time Seen by Provider: 08/31/19 08:01 Source: patient Mode of arrival: Ambulatory Limitations: No Limitations - History of Present Illness Initial comments: The patient is a 29-year-old female who presents to ED complaining of 10/10 pain in the right side of her mouth x 7 days . Patient states that the pain started 7 days ago and has increased in severity over the last 2-3 days. The pain is exacerbated by eating and opening of the mouth. Patient states the pain is alleviated initially with pain medication but comes back. Patient noted that she noticed some right gum swelling yesterday. Patient states pain is so bad that she is unable to sleep at night. Patient states that it radiates towards ear. Patient describes a as a throbbing, pressure-like sensation. Patient crying in the ED room stating that tooth is really hurting. Patient has had no fevers and no chills. No chest pain, no shortness of breath. No abdominal pain. No shortness of breath or recent trauma to the face. MD complaint: tooth pain - Related Data Previous Rx's Medication Instructions Recorded Last Taken Type Permethrin 5% [Acticin 5% CREAM] 1 applicatio TP ONCE #1 tube 08/27/18 Unknown Rx Piperonyl Butoxide/Pyrethrins [Rid 177 ml TP ONCE #1 bottle 08/27/18 Unknown Rx Essential Lice Kit] Triamcinolone Aceton 0.1% (Nf) 1 applic TP BID 14 Days #1 tube 08/27/18 Unknown Rx [Kenalog (NF)] hydrOXYzine HCL [Atarax] 25 mg PO Q6HR PRN #30 tablet 08/27/18 Unknown Rx Ibuprofen [Ibu] 800 mg PO Q8H PRN #20 tablet 08/31/18 Unknown Rx Ondansetron [Zofran Odt] 4 mg PO Q8HR #10 tab.rapdis 08/31/18 Unknown Rx Ketorolac [Toradol] 10 mg PO Q6H PRN #14 tablet 10/07/18 Unknown Rx oxyCODONE /ACETAMINOPHEN [Percocet 1 tab PO Q6HR PRN #8 tablet 10/13/18 Unknown Rx 5/325 mg] Acetaminophen [Acetaminophen TAB] 1,000 mg PO Q6HR PRN #30 tablet 11/07/18 Unknown Rx Dicyclomine [Bentyl] 10 mg PO QID PRN #30 capsule 11/07/18 Unknown Rx Ondansetron [Zofran Odt] 4 mg PO Q8HR PRN #12 tab.rapdis 11/07/18 Unknown Rx HYDROcodone/APAP 5-325 [[place] 1 each PO Q6HR PRN #10 tablet 07/21/19 Unknown Rx 5/325] Acetaminophen/Codeine [Tylenol 1 tab PO TID #12 tablet 08/31/19 Unknown Rx /Codeine # 3 tab] Chlorhexidine Mouthwash [Peridex] 15 ml MM BID #1 bottle 08/31/19 Unknown Rx Clindamycin [Clindamycin CAP] 300 mg PO Q8H #21 cap 08/31/19 Unknown Rx Ibuprofen [Motrin 600 MG tab] 600 mg PO Q8H PRN #20 tablet 08/31/19 Unknown Rx Allergies Allergy/AdvReac Type Severity Reaction Status Date / Time diphenhydramine Allergy Unknown Verified 10/07/18 19:23 [From Benadryl] tramadol Allergy Itching Verified 10/07/18 19:23 ED Dental HPI - General Chief complaint: Dental/Oral Stated complaint: TOOTHACHE Time Seen by Provider: 08/31/19 08:01 Source: patient Mode of arrival: Ambulatory Limitations: No Limitations - Related Data Previous Rx's Medication Instructions Recorded Last Taken Type Permethrin 5% [Acticin 5% CREAM] 1 applicatio TP ONCE #1 tube 08/27/18 Unknown Rx Piperonyl Butoxide/Pyrethrins [Rid 177 ml TP ONCE #1 bottle 08/27/18 Unknown Rx Essential Lice Kit] Triamcinolone Aceton 0.1% (Nf) 1 applic TP BID 14 Days #1 tube 08/27/18 Unknown Rx [Kenalog (NF)] hydrOXYzine HCL [Atarax] 25 mg PO Q6HR PRN #30 tablet 08/27/18 Unknown Rx Ibuprofen [Ibu] 800 mg PO Q8H PRN #20 tablet 08/31/18 Unknown Rx Ondansetron [Zofran Odt] 4 mg PO Q8HR #10 tab.rapdis 08/31/18 Unknown Rx Ketorolac [Toradol] 10 mg PO Q6H PRN #14 tablet 10/07/18 Unknown Rx oxyCODONE /ACETAMINOPHEN [Percocet 1 tab PO Q6HR PRN #8 tablet 10/13/18 Unknown Rx 5/325 mg] Acetaminophen [Acetaminophen TAB] 1,000 mg PO Q6HR PRN #30 tablet 11/07/18 Unknown Rx Dicyclomine [Bentyl] 10 mg PO QID PRN #30 capsule 11/07/18 Unknown Rx Ondansetron [Zofran Odt] 4 mg PO Q8HR PRN #12 tab.rapdis 11/07/18 Unknown Rx HYDROcodone/APAP 5-325 [[place] 1 each PO Q6HR PRN #10 tablet 07/21/19 Unknown Rx 5/325] Acetaminophen/Codeine [Tylenol 1 tab PO TID #12 tablet 08/31/19 Unknown Rx /Codeine # 3 tab] Chlorhexidine Mouthwash [Peridex] 15 ml MM BID #1 bottle 08/31/19 Unknown Rx Clindamycin [Clindamycin CAP] 300 mg PO Q8H #21 cap 08/31/19 Unknown Rx Ibuprofen [Motrin 600 MG tab] 600 mg PO Q8H PRN #20 tablet 08/31/19 Unknown Rx Allergies Allergy/AdvReac Type Severity Reaction Status Date / Time diphenhydramine Allergy Unknown Verified 10/07/18 19:23 [From Benadryl] tramadol Allergy Itching Verified 10/07/18 19:23 ED Review of Systems ROS: Stated complaint: TOOTHACHE Other details as noted in HPI Comment: All other systems reviewed and negative ED Past Medical Hx - Past Medical History Previous Medical History?: No Additional medical history: Broken Right Knee cap 09/28/18 - Surgical History Past Surgical History?: Yes Additional Surgical History: , tubaligation - Social History Smoking Status: Never Smoker Substance Use Type: None - Medications Home Medications: Home Medications Medication Instructions Recorded Confirmed Last Taken Type Permethrin 5% [Acticin 5% CREAM] 1 applicatio TP ONCE #1 tube 08/27/18 Unknown Rx Piperonyl Butoxide/Pyrethrins [Rid 177 ml TP ONCE #1 bottle 08/27/18 Unknown Rx Essential Lice Kit] Triamcinolone Aceton 0.1% (Nf) 1 applic TP BID 14 Days #1 tube 08/27/18 Unknown Rx [Kenalog (NF)] hydrOXYzine HCL [Atarax] 25 mg PO Q6HR PRN #30 tablet 08/27/18 Unknown Rx Ibuprofen [Ibu] 800 mg PO Q8H PRN #20 tablet 08/31/18 Unknown Rx Ondansetron [Zofran Odt] 4 mg PO Q8HR #10 tab.rapdis 08/31/18 Unknown Rx Ketorolac [Toradol] 10 mg PO Q6H PRN #14 tablet 10/07/18 Unknown Rx oxyCODONE /ACETAMINOPHEN [Percocet 1 tab PO Q6HR PRN #8 tablet 10/13/18 Unknown Rx 5/325 mg] Acetaminophen [Acetaminophen TAB] 1,000 mg PO Q6HR PRN #30 tablet 11/07/18 Unknown Rx Dicyclomine [Bentyl] 10 mg PO QID PRN #30 capsule 11/07/18 Unknown Rx Ondansetron [Zofran Odt] 4 mg PO Q8HR PRN #12 tab.rapdis 11/07/18 Unknown Rx HYDROcodone/APAP 5-325 [[place] 1 each PO Q6HR PRN #10 tablet 07/21/19 Unknown Rx 5/325] Acetaminophen/Codeine [Tylenol 1 tab PO TID #12 tablet 08/31/19 Unknown Rx /Codeine # 3 tab] Chlorhexidine Mouthwash [Peridex] 15 ml MM BID #1 bottle 08/31/19 Unknown Rx Clindamycin [Clindamycin CAP] 300 mg PO Q8H #21 cap 08/31/19 Unknown Rx Ibuprofen [Motrin 600 MG tab] 600 mg PO Q8H PRN #20 tablet 08/31/19 Unknown Rx ED Physical Exam - General Limitations: No Limitations General appearance: alert, in no apparent distress - Head Head exam: Present: atraumatic, normocephalic - Eye Eye exam: Present: normal appearance - ENT ENT exam: Present: mucous membranes moist - Expanded ENT Exam Expanded Mouth exam: Present: normal external inspection Teeth exam: Present: dental caries, dental tenderness #, gingival enlargement (29-31) Throat exam: Positive: normal inspection. Negative: tonsillar erythema, tonsillomegaly, tonsillar exudate - Neck Neck exam: Present: normal inspection - Respiratory Respiratory exam: Present: normal lung sounds bilaterally. Absent: respiratory distress - Cardiovascular Cardiovascular Exam: Present: regular rate, normal rhythm. Absent: systolic murmur, diastolic murmur, rubs, gallop - GI/Abdominal GI/Abdominal exam: Present: soft, normal bowel sounds - Extremities Exam Extremities exam: Present: normal inspection - Back Exam Back exam: Present: normal inspection - Neurological Exam Neurological exam: Present: alert, oriented X3 - Psychiatric Psychiatric exam: Present: normal affect, normal mood - Skin Skin exam: Present: warm, dry, intact, normal color. Absent: rash ED Course Vital Signs 08/31/19 06:47 Temperature 98.0 F Pulse Rate 94 H Respiratory 20 Rate Blood Pressure 140/99 O2 Sat by Pulse 100 Oximetry ED Medical Decision Making - Medical Decision Making 29-year-old female who presents with right-sided Facial pain secondary to odontogenic caries and abscess ED course: Patient received 300 mg of mitomycin, 2 tablets of Tylenol No. 3. Odontogenic infection versus ear infection. Based upon history and physical examination, pain is a result of an infection of tooth number 29,30 (which were missing ) so gingival swelling and that the pain Pt feels on the right side of his face and towards the ear is referred pain from this infectious process. Pt has no evidence of acute impending airway compromise. At this point, patient will be discharged home on some antibiotics and pain trial, she will do well with an outpatient course of antibiotics. Follow up with the Dental Clinic as referred Vital signs are normal patient is in no acute distress. Pt had an effect uneventful ED stay Critical care attestation.: If time is entered above; I have spent that time in minutes in the direct care of this critically ill patient, excluding procedure time. ED Disposition Clinical Impression: Dental abscess Disposition: - TO HOME OR SELFCARE Is pt being admited?: No Does the pt Need Aspirin: No Condition: Stable Instructions: Dental Abscess (ED) Additional Instructions: Make sure to follow up with the p dentist as discussed. Take all your medications as you've been prescribed. If you have any worsening symptoms or develop new symptoms please return to ED immediately. Prescriptions: Clindamycin [Clindamycin CAP] 300 mg PO Q8H #21 cap Ibuprofen [Motrin 600 MG tab] 600 mg PO Q8H PRN #20 tablet PRN Reason: Pain Chlorhexidine Mouthwash [Peridex] 15 ml MM BID #1 bottle Acetaminophen/Codeine [Tylenol /Codeine # 3 tab] 1 tab PO TID #12 tablet Referrals: RAMÍREZ MARIE MD [Primary Care Provider] - 3-5 Days [facility] [Outside] - 3-5 Days [facility] [Outside] - 3-5 Days Forms: Accompanied Note, Work/School Release Form(ED) Time of Disposition: 08:43
[2019-08-31 09:19] VITALS: BP 122/99
== END 2019-08-31 09:18 | disposition home or self-care (01) ==
LOC: ED 06:23
DX: K04.7 Periapical abscess without sinus (principal)
CPT/HCPCS: 99282; J7512

== ENCOUNTER 2020-02-06 07:28 | Emergency (ER) | payer OTHER ==
[2020-02-06 07:35] VITALS: BP 119/89
--- NOTE | 2020-02-06 09:20 | Emergency Department Report ---
ED ENT HPI - General Chief complaint: Dental/Oral Stated complaint: TOOTH PAIN Time Seen by Provider: 02/06/20 09:00 Source: patient Mode of arrival: Ambulatory Limitations: No Limitations - History of Present Illness Initial comments: 29-year-old -[place] female presents to the emergency room complaining of a toothache x1 month. She also complains of muffled hearing in both ears x1 month. Patient states she has taken nothing for pain. She reports that she has an abscess to her right upper gum. Patient states that she has been trying to get into a dentist but none of them are accepting any patients at this time. Patient denies any fever chills no nausea no vomiting no chest pain shortness of breath or headache. MD complaint: tooth pain - Related Data Previous Rx's Medication Instructions Recorded Last Taken Type Permethrin 5% [Acticin 5% CREAM] 1 applicatio TP ONCE #1 tube 08/27/18 Unknown Rx Piperonyl Butoxide/Pyrethrins [Rid 177 ml TP ONCE #1 bottle 08/27/18 Unknown Rx Essential Lice Kit] Triamcinolone Aceton 0.1% (Nf) 1 applic TP BID 14 Days #1 tube 08/27/18 Unknown Rx [Kenalog (NF)] hydrOXYzine HCL [Atarax] 25 mg PO Q6HR PRN #30 tablet 08/27/18 Unknown Rx Ibuprofen [Ibu] 800 mg PO Q8H PRN #20 tablet 08/31/18 Unknown Rx Ondansetron [Zofran Odt] 4 mg PO Q8HR #10 tab.rapdis 08/31/18 Unknown Rx Ketorolac [Toradol] 10 mg PO Q6H PRN #14 tablet 10/07/18 Unknown Rx oxyCODONE /ACETAMINOPHEN [Percocet 1 tab PO Q6HR PRN #8 tablet 10/13/18 Unknown Rx 5/325 mg] Acetaminophen [Acetaminophen TAB] 1,000 mg PO Q6HR PRN #30 tablet 11/07/18 Unknown Rx Dicyclomine [Bentyl] 10 mg PO QID PRN #30 capsule 11/07/18 Unknown Rx Ondansetron [Zofran Odt] 4 mg PO Q8HR PRN #12 tab.rapdis 11/07/18 Unknown Rx HYDROcodone/APAP 5-325 [[place] 1 each PO Q6HR PRN #10 tablet 07/21/19 Unknown Rx 5/325] Acetaminophen/Codeine [Tylenol 1 tab PO TID #12 tablet 08/31/19 Unknown Rx /Codeine # 3 tab] Chlorhexidine Mouthwash [Peridex] 15 ml MM BID #1 bottle 02/06/20 Unknown Rx Clindamycin [Clindamycin CAP] 300 mg PO Q8H #21 cap 02/06/20 Unknown Rx Ibuprofen [Motrin 600 MG tab] 600 mg PO Q8H PRN #20 tablet 02/06/20 Unknown Rx Allergies Allergy/AdvReac Type Severity Reaction Status Date / Time diphenhydramine Allergy Unknown Verified 10/07/18 19:23 [From Benadryl] tramadol Allergy Itching Verified 10/07/18 19:23 ED Dental HPI - General Chief complaint: Dental/Oral Stated complaint: TOOTH PAIN Time Seen by Provider: 02/06/20 09:00 Source: patient Mode of arrival: Ambulatory Limitations: No Limitations - Related Data Previous Rx's Medication Instructions Recorded Last Taken Type Permethrin 5% [Acticin 5% CREAM] 1 applicatio TP ONCE #1 tube 08/27/18 Unknown Rx Piperonyl Butoxide/Pyrethrins [Rid 177 ml TP ONCE #1 bottle 08/27/18 Unknown Rx Essential Lice Kit] Triamcinolone Aceton 0.1% (Nf) 1 applic TP BID 14 Days #1 tube 08/27/18 Unknown Rx [Kenalog (NF)] hydrOXYzine HCL [Atarax] 25 mg PO Q6HR PRN #30 tablet 08/27/18 Unknown Rx Ibuprofen [Ibu] 800 mg PO Q8H PRN #20 tablet 08/31/18 Unknown Rx Ondansetron [Zofran Odt] 4 mg PO Q8HR #10 tab.rapdis 08/31/18 Unknown Rx Ketorolac [Toradol] 10 mg PO Q6H PRN #14 tablet 10/07/18 Unknown Rx oxyCODONE /ACETAMINOPHEN [Percocet 1 tab PO Q6HR PRN #8 tablet 10/13/18 Unknown Rx 5/325 mg] Acetaminophen [Acetaminophen TAB] 1,000 mg PO Q6HR PRN #30 tablet 11/07/18 Unknown Rx Dicyclomine [Bentyl] 10 mg PO QID PRN #30 capsule 11/07/18 Unknown Rx Ondansetron [Zofran Odt] 4 mg PO Q8HR PRN #12 tab.rapdis 11/07/18 Unknown Rx HYDROcodone/APAP 5-325 [[place] 1 each PO Q6HR PRN #10 tablet 07/21/19 Unknown Rx 5/325] Acetaminophen/Codeine [Tylenol 1 tab PO TID #12 tablet 08/31/19 Unknown Rx /Codeine # 3 tab] Chlorhexidine Mouthwash [Peridex] 15 ml MM BID #1 bottle 02/06/20 Unknown Rx Clindamycin [Clindamycin CAP] 300 mg PO Q8H #21 cap 02/06/20 Unknown Rx Ibuprofen [Motrin 600 MG tab] 600 mg PO Q8H PRN #20 tablet 02/06/20 Unknown Rx Allergies Allergy/AdvReac Type Severity Reaction Status Date / Time diphenhydramine Allergy Unknown Verified 10/07/18 19:23 [From Benadryl] tramadol Allergy Itching Verified 10/07/18 19:23 ED Review of Systems ROS: Stated complaint: TOOTH PAIN Other details as noted in HPI ED Past Medical Hx - Past Medical History Hx Hypertension: Yes Additional medical history: Broken Right Knee cap 09/28/18 - Surgical History Additional Surgical History: , tubaligation - Social History Smoking Status: Current Every Day Smoker - Medications Home Medications: Home Medications Medication Instructions Recorded Confirmed Last Taken Type Permethrin 5% [Acticin 5% CREAM] 1 applicatio TP ONCE #1 tube 08/27/18 Unknown Rx Piperonyl Butoxide/Pyrethrins [Rid 177 ml TP ONCE #1 bottle 08/27/18 Unknown Rx Essential Lice Kit] Triamcinolone Aceton 0.1% (Nf) 1 applic TP BID 14 Days #1 tube 08/27/18 Unknown Rx [Kenalog (NF)] hydrOXYzine HCL [Atarax] 25 mg PO Q6HR PRN #30 tablet 08/27/18 Unknown Rx Ibuprofen [Ibu] 800 mg PO Q8H PRN #20 tablet 08/31/18 Unknown Rx Ondansetron [Zofran Odt] 4 mg PO Q8HR #10 tab.rapdis 08/31/18 Unknown Rx Ketorolac [Toradol] 10 mg PO Q6H PRN #14 tablet 10/07/18 Unknown Rx oxyCODONE /ACETAMINOPHEN [Percocet 1 tab PO Q6HR PRN #8 tablet 10/13/18 Unknown Rx 5/325 mg] Acetaminophen [Acetaminophen TAB] 1,000 mg PO Q6HR PRN #30 tablet 11/07/18 Unknown Rx Dicyclomine [Bentyl] 10 mg PO QID PRN #30 capsule 11/07/18 Unknown Rx Ondansetron [Zofran Odt] 4 mg PO Q8HR PRN #12 tab.rapdis 11/07/18 Unknown Rx HYDROcodone/APAP 5-325 [[place] 1 each PO Q6HR PRN #10 tablet 07/21/19 Unknown Rx 5/325] Acetaminophen/Codeine [Tylenol 1 tab PO TID #12 tablet 08/31/19 Unknown Rx /Codeine # 3 tab] Chlorhexidine Mouthwash [Peridex] 15 ml MM BID #1 bottle 02/06/20 Unknown Rx Clindamycin [Clindamycin CAP] 300 mg PO Q8H #21 cap 02/06/20 Unknown Rx Ibuprofen [Motrin 600 MG tab] 600 mg PO Q8H PRN #20 tablet 02/06/20 Unknown Rx ED Physical Exam - General Limitations: No Limitations ED Course Vital Signs 02/06/20 07:33 Temperature 97.9 F Pulse Rate 75 Respiratory 20 Rate Blood Pressure 119/89 O2 Sat by Pulse 100 Oximetry ED Medical Decision Making - Medical Decision Making 29-year-old -[place] female presents to the emergency room complaining of a toothache x1 month. She also complains of muffled hearing in both ears x1 month. Patient states she has taken nothing for pain. She reports that she has an abscess to her right upper gum. Patient states that she has been trying to get into a dentist but none of them are accepting any patients at this time. Patient denies any fever chills no nausea no vomiting no chest pain shortness of breath or headache. Patient be placed on clindamycin 300 mg every 8 hours, Peridex and ibuprofen. Patient is to follow-up with a dentist I have listed several below for her convenience. I also discussed with patient that she has bilateral cerumen impaction of both ears and that she can follow-up with the ear nose and throat provider. She can also use [id number] Debrox. Patient verbalized understanding. Critical care attestation.: If time is entered above; I have spent that time in minutes in the direct care of this critically ill patient, excluding procedure time. ED Disposition Clinical Impression: Dental abscess, Bilateral impacted cerumen, Dental caries associated with enamel hypomineralization Disposition: TO HOME OR SELFCARE Is pt being admited?: No Does the pt Need Aspirin: No Condition: Stable Instructions: Dental Abscess (ED), Cerumen Impaction (ED) Additional Instructions: Complete antibiotics take pain medication and use mouth rinse. Follow-up with the ear nose and throat doctor for your cerumen impaction. Follow-up with the dentist for your dental concerns. Please be sure to drink plenty of water while taking medications. Prescriptions: Clindamycin [Clindamycin CAP] 300 mg PO Q8H #21 cap Ibuprofen [Motrin 600 MG tab] 600 mg PO Q8H PRN #20 tablet PRN Reason: Pain Chlorhexidine Mouthwash [Peridex] 15 ml MM BID #1 bottle Referrals: PRIMARY CARE [Primary Care Provider] - 3-5 Days [facility] [Provider Group] - 3-5 Days [facility] [Provider Group] - 3-5 Days [facility] [Outside] - 3-5 Days [facility] [Outside] - 3-5 Days Forms: Work/School Release Form(ED)
== END 2020-02-06 09:35 | disposition home or self-care (01) ==
LOC: ED 07:28
DX: K04.7 Periapical abscess without sinus (principal); H61.23 Impacted cerumen, bilateral; K02.9 Dental caries, unspecified; I10 Essential (primary) hypertension; F17.200 Nicotine dependence, unspecified, uncomplicated; Z98.51 Tubal ligation status; Z79.899 Other long term (current) drug therapy
CPT/HCPCS: 99282

== ENCOUNTER 2020-08-14 23:44 | Emergency (ER) | payer OTHER ==
[2020-08-14 23:54] VITALS: BP 113/83
--- NOTE | 2020-08-15 00:07 | Emergency Department Report ---
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 No shortness of breath no wheezing. ED Review of Systems ROS: Stated complaint: BODY RASH Other details as noted in HPI ED Past Medical Hx - Past Medical History Hx Hypertension: Yes Additional medical history: Broken Right Knee cap 09/28/18 - Surgical History Additional Surgical History: , tubaligation - Social History Smoking Status: Current Every Day Smoker - Medications Home Medications: Home Medications Medication Instructions Recorded Confirmed Last Taken Type Permethrin 5% [Acticin 5% CREAM] 1 applicatio TP ONCE #1 tube 08/27/18 Unknown Rx Piperonyl Butoxide/Pyrethrins [Rid 177 ml TP ONCE #1 bottle 08/27/18 Unknown Rx Essential Lice Kit] Triamcinolone Aceton 0.1% (Nf) 1 applic TP BID 14 Days #1 tube 08/27/18 Unknown Rx [Kenalog (NF)] hydrOXYzine HCL [Atarax] 25 mg PO Q6HR PRN #30 tablet 08/27/18 Unknown Rx Ibuprofen [Ibu] 800 mg PO Q8H PRN #20 tablet 08/31/18 Unknown Rx Ondansetron [Zofran Odt] 4 mg PO Q8HR #10 tab.rapdis 08/31/18 Unknown Rx Ketorolac [Toradol] 10 mg PO Q6H PRN #14 tablet 10/07/18 Unknown Rx oxyCODONE /ACETAMINOPHEN [Percocet 1 tab PO Q6HR PRN #8 tablet 10/13/18 Unknown Rx 5/325 mg] Acetaminophen [Acetaminophen TAB] 1,000 mg PO Q6HR PRN #30 tablet 11/07/18 Unknown Rx Dicyclomine [Bentyl] 10 mg PO QID PRN #30 capsule 11/07/18 Unknown Rx Ondansetron [Zofran Odt] 4 mg PO Q8HR PRN #12 tab.rapdis 11/07/18 Unknown Rx HYDROcodone/APAP 5-325 [[place] 1 each PO Q6HR PRN #10 tablet 07/21/19 Unknown Rx 5/325] Acetaminophen/Codeine [Tylenol 1 tab PO TID #12 tablet 08/31/19 Unknown Rx /Codeine # 3 tab] Chlorhexidine Mouthwash [Peridex] 15 ml MM BID #1 bottle 02/06/20 Unknown Rx Clindamycin [Clindamycin CAP] 300 mg PO Q8H #21 cap 02/06/20 Unknown Rx Ibuprofen [Motrin 600 MG tab] 600 mg PO Q8H PRN #20 tablet 02/06/20 Unknown Rx Permethrin [Nix LIQUID] 1 applic TP ONCE #1 bottle 08/15/20 Unknown Rx hydrOXYzine HCL [Atarax] 25 mg PO Q6HR PRN #20 tablet 08/15/20 Unknown Rx predniSONE [Deltasone] 20 mg PO QDAY #7 tab 08/15/20 Unknown Rx Rash Exam - Exam General: Vital signs noted. No distress. Alert and acting appropriately. ED Course Vital Signs 08/14/20 23:50 Temperature 98.3 F Pulse Rate 110 H Respiratory 16 Rate Blood Pressure 113/83 O2 Sat by Pulse 99 Oximetry Critical care attestation.: If time is entered above; I have spent that time in minutes in the direct care of this critically ill patient, excluding procedure time. ED Disposition Clinical Impression: Rash and nonspecific skin eruption Disposition: DC-01 TO HOME OR SELFCARE Is pt being admited?: No Does the pt Need Aspirin: No Condition: Stable Instructions: Scabies, Adult, Rash, Adult Prescriptions: hydrOXYzine HCL [Atarax] 25 mg PO Q6HR PRN #20 tablet PRN Reason: Itching predniSONE [Deltasone] 20 mg PO QDAY #7 tab Permethrin [Nix LIQUID] 1 applic TP ONCE #1 bottle Referrals: [facility] [Provider Group] - 3-5 Days
== END 2020-08-15 00:52 | disposition home or self-care (01) ==
LOC: ED 23:44
DX: R21 Rash and other nonspecific skin eruption (principal); I10 Essential (primary) hypertension; Z98.51 Tubal ligation status; Z79.899 Other long term (current) drug therapy; F17.200 Nicotine dependence, unspecified, uncomplicated; Z88.8 Allergy status to other drugs, medicaments and biological substances
CPT/HCPCS: 99282

== ENCOUNTER 2020-08-24 17:55 | Emergency (ER) | payer OTHER ==
--- NOTE | 2020-08-24 19:46 | Emergency Department Report ---
Abscess Boil HPI - HPI Chief Complaint: Skin/Abscess/Foreign Body Stated Complaint: SPIDER BITE/CHEST PAIN/VOMITING Time Seen by Provider: 08/24/20 19:42 Duration: 5 Days History: Yes Fever, Yes Pain, Yes Insect Bite, No Purulent Drainage, No Numbness, No Foreign Body, No Previous History HPI: 30-year-old -[place] female presents to the emergency room reporting that she was seen here on 08/15/2020 and was diagnosed with scabies. Patient states she completed her medication which included Premarin, prednisone and Atarax. Patient states she has a bump to her right side of her cheek that is tender and a bump in the middle of her chest that is tender. Patient reports she has been having a low-grade fever and just fatigue. Home Medications: Previous Rx's Medication Instructions Recorded Last Taken Type Permethrin 5% [Acticin 5% CREAM] 1 applicatio TP ONCE #1 tube 08/27/18 Unknown Rx Piperonyl Butoxide/Pyrethrins [Rid 177 ml TP ONCE #1 bottle 08/27/18 Unknown Rx Essential Lice Kit] Triamcinolone Aceton 0.1% (Nf) 1 applic TP BID 14 Days #1 tube 08/27/18 Unknown Rx [Kenalog (NF)] hydrOXYzine HCL [Atarax] 25 mg PO Q6HR PRN #30 tablet 08/27/18 Unknown Rx Ibuprofen [Ibu] 800 mg PO Q8H PRN #20 tablet 08/31/18 Unknown Rx Ondansetron [Zofran Odt] 4 mg PO Q8HR #10 tab.rapdis 08/31/18 Unknown Rx Ketorolac [Toradol] 10 mg PO Q6H PRN #14 tablet 10/07/18 Unknown Rx oxyCODONE /ACETAMINOPHEN [Percocet 1 tab PO Q6HR PRN #8 tablet 10/13/18 Unknown Rx 5/325 mg] Acetaminophen [Acetaminophen TAB] 1,000 mg PO Q6HR PRN #30 tablet 11/07/18 Unknown Rx Dicyclomine [Bentyl] 10 mg PO QID PRN #30 capsule 11/07/18 Unknown Rx Ondansetron [Zofran Odt] 4 mg PO Q8HR PRN #12 tab.rapdis 11/07/18 Unknown Rx HYDROcodone/APAP 5-325 [[place] 1 each PO Q6HR PRN #10 tablet 07/21/19 Unknown Rx 5/325] Acetaminophen/Codeine [Tylenol 1 tab PO TID #12 tablet 08/31/19 Unknown Rx /Codeine # 3 tab] Chlorhexidine Mouthwash [Peridex] 15 ml MM BID #1 bottle 02/06/20 Unknown Rx Clindamycin [Clindamycin CAP] 300 mg PO Q8H #21 cap 02/06/20 Unknown Rx Ibuprofen [Motrin 600 MG tab] 600 mg PO Q8H PRN #20 tablet 02/06/20 Unknown Rx Permethrin [Nix LIQUID] 1 applic TP ONCE #1 bottle 08/15/20 Unknown Rx hydrOXYzine HCL [Atarax] 25 mg PO Q6HR PRN #20 tablet 08/15/20 Unknown Rx predniSONE [Deltasone] 20 mg PO QDAY #7 tab 08/15/20 Unknown Rx Sulfamethoxazole/Trimethoprim 1 each PO BID 10 Days #20 tablet 08/24/20 Unknown Rx [Bactrim DS TAB] Allergies/Adverse Reactions: Allergies Allergy/AdvReac Type Severity Reaction Status Date / Time diphenhydramine Allergy Unknown Verified 10/07/18 19:23 [From Benadryl] tramadol Allergy Itching Verified 10/07/18 19:23 ED Review of Systems ROS: Stated complaint: SPIDER BITE/CHEST PAIN/VOMITING Other details as noted in HPI Comment: All other systems reviewed and negative ED Past Medical Hx - Past Medical History Previous Medical History?: Yes Hx Hypertension: Yes Additional medical history: Broken Right Knee cap 09/28/18, Boils - Surgical History Past Surgical History?: Yes Additional Surgical History: , tubaligation - Social History Smoking Status: Current Every Day Smoker Substance Use Type: Alcohol - Medications Home Medications: Home Medications Medication Instructions Recorded Confirmed Last Taken Type Permethrin 5% [Acticin 5% CREAM] 1 applicatio TP ONCE #1 tube 08/27/18 Unknown Rx Piperonyl Butoxide/Pyrethrins [Rid 177 ml TP ONCE #1 bottle 08/27/18 Unknown Rx Essential Lice Kit] Triamcinolone Aceton 0.1% (Nf) 1 applic TP BID 14 Days #1 tube 08/27/18 Unknown Rx [Kenalog (NF)] hydrOXYzine HCL [Atarax] 25 mg PO Q6HR PRN #30 tablet 08/27/18 Unknown Rx Ibuprofen [Ibu] 800 mg PO Q8H PRN #20 tablet 08/31/18 Unknown Rx Ondansetron [Zofran Odt] 4 mg PO Q8HR #10 tab.rapdis 08/31/18 Unknown Rx Ketorolac [Toradol] 10 mg PO Q6H PRN #14 tablet 10/07/18 Unknown Rx oxyCODONE /ACETAMINOPHEN [Percocet 1 tab PO Q6HR PRN #8 tablet 10/13/18 Unknown Rx 5/325 mg] Acetaminophen [Acetaminophen TAB] 1,000 mg PO Q6HR PRN #30 tablet 11/07/18 Unknown Rx Dicyclomine [Bentyl] 10 mg PO QID PRN #30 capsule 11/07/18 Unknown Rx Ondansetron [Zofran Odt] 4 mg PO Q8HR PRN #12 tab.rapdis 11/07/18 Unknown Rx HYDROcodone/APAP 5-325 [[place] 1 each PO Q6HR PRN #10 tablet 07/21/19 Unknown Rx 5/325] Acetaminophen/Codeine [Tylenol 1 tab PO TID #12 tablet 08/31/19 Unknown Rx /Codeine # 3 tab] Chlorhexidine Mouthwash [Peridex] 15 ml MM BID #1 bottle 02/06/20 Unknown Rx Clindamycin [Clindamycin CAP] 300 mg PO Q8H #21 cap 02/06/20 Unknown Rx Ibuprofen [Motrin 600 MG tab] 600 mg PO Q8H PRN #20 tablet 02/06/20 Unknown Rx Permethrin [Nix LIQUID] 1 applic TP ONCE #1 bottle 08/15/20 Unknown Rx hydrOXYzine HCL [Atarax] 25 mg PO Q6HR PRN #20 tablet 08/15/20 Unknown Rx predniSONE [Deltasone] 20 mg PO QDAY #7 tab 08/15/20 Unknown Rx Sulfamethoxazole/Trimethoprim 1 each PO BID 10 Days #20 tablet 08/24/20 Unknown Rx [Bactrim DS TAB] ED Abscess Boil Physical Exam - Exam General: Vital signs noted. No distress. Alert and acting appropriately. Size: 2 cm Exam: Yes Tenderness, Yes Surrounding Cellulites/Erythema, Yes Normal Neurologic Exam, Yes Normal Circulation, No Fluctuance, No Lymphangitis, No Crepitation, No Heart Murmur ED Course Vital Signs 08/24/20 18:10 Temperature 99.2 F Pulse Rate 98 H Respiratory 20 Rate Blood Pressure 121/75 O2 Sat by Pulse 99 Oximetry Critical care attestation.: If time is entered above; I have spent that time in minutes in the direct care of this critically ill patient, excluding procedure time. ED Medical Decision Making - Medical Decision Making 30-year-old -[place] female presents to the emergency room reporting that she was seen here on 08/15/2020 and was diagnosed with scabies. Patient states she completed her medication which included Premarin, prednisone and Atarax. Patient states she has a bump to her right side of her cheek that is tender and a bump in the middle of her chest that is tender. Patient reports she has been having a low-grade fever and just fatigue. Discussed with patient I will place her on Bactrim double strength take it twice a day for the next 10 days. Discussed with patient to continue with warm compress. Follow-up with a primary care provider. ED Disposition Clinical Impression: Abscess Disposition: [id number] TO HOME OR SELFCARE Is pt being admited?: No Does the pt Need Aspirin: No Condition: Stable Instructions: Skin Abscess, [id number] Additional Instructions: Complete antibiotics as prescribed. Pain medication. Prescriptions: Sulfamethoxazole/Trimethoprim [Bactrim DS TAB] 1 each PO BID 10 Days #20 tablet Referrals: PRIMARY CARE [Primary Care Provider] - 3-5 Days [facility] [Provider Group] - 3-5 Days Forms: Work/School Release Form(ED)
== END 2020-08-24 20:10 | disposition home or self-care (01) ==
LOC: ED 17:55
CPT/HCPCS: 99282

== ENCOUNTER 2020-08-26 04:33 | Emergency (ER) | payer OTHER ==
[2020-08-26 05:30] VITALS: BP 121/82
== END 2020-08-26 07:36 | disposition left against medical advice (07) ==
LOC: ED 04:33
DX: Z53.21 Procedure and treatment not carried out due to patient leaving prior to being seen by health care provider (principal)

== ENCOUNTER 2021-12-31 08:09 | Emergency (ER) | payer OTHER ==
--- NOTE | 2021-12-31 08:36 | Emergency Department Report ---
ED Head Trauma HPI - General Chief complaint: Fall Stated complaint: HIT HEAD/ HEADACHE/VOMITING/DIZZY Time Seen by Provider: 12/31/21 08:35 Source: patient Mode of arrival: Ambulatory Limitations: No Limitations - History of Present Illness Initial comments: Patient is a 31-year-old female that comes to the ER 3 days after falling in her front yard. She states that she has a hole in the yard and she fell and hit her head on a rock. She has had a previous concussion her mother was concerned so she sends her to the ER. The patient is neurologically intact. However, she is reporting that she has been sleepy since the incident. She has no focal neurodeficit. Vital signs are normal. MD Complaint: head injury -: Sudden, days(s) Mechanism of Injury: other (Mechanical) Location: frontal (Right) Loss of Consciousness: no Previous Trauma to this Area: Yes Place: home Severity scale (0 -10): 2 Quality: dull Consistency: constant Provoking factors: none known Other Injuries: none Associated Symptoms: denies other symptoms. denies: confusion, amnesia, repetitive questioning, vision changes, nausea, vomiting, vertigo, syncope, numbness, weakness, tingling, neck pain - Related Data Previous Rx's Medication Instructions Recorded Last Taken Type Permethrin 5% [Acticin 5% CREAM] 1 applicatio TP ONCE #1 tube 08/27/18 Unknown Rx Piperonyl Butoxide/Pyrethrins [Rid 177 ml TP ONCE #1 bottle 08/27/18 Unknown Rx Essential Lice Kit] Triamcinolone Aceton 0.1% (Nf) 1 applic TP BID 14 Days #1 tube 08/27/18 Unknown Rx [Kenalog (NF)] hydrOXYzine HCL [Atarax] 25 mg PO Q6HR PRN #30 tablet 08/27/18 Unknown Rx Ibuprofen [Ibu] 800 mg PO Q8H PRN #20 tablet 08/31/18 Unknown Rx Ondansetron [Zofran Odt] 4 mg PO Q8HR #10 tab.rapdis 08/31/18 Unknown Rx Ketorolac [Toradol] 10 mg PO Q6H PRN #14 tablet 10/07/18 Unknown Rx oxyCODONE /ACETAMINOPHEN [Percocet 1 tab PO Q6HR PRN #8 tablet 10/13/18 Unknown Rx 5/325 mg] Acetaminophen [Acetaminophen TAB] 1,000 mg PO Q6HR PRN #30 tablet 11/07/18 Unknown Rx Dicyclomine [Bentyl] 10 mg PO QID PRN #30 capsule 11/07/18 Unknown Rx Ondansetron [Zofran Odt] 4 mg PO Q8HR PRN #12 tab.rapdis 11/07/18 Unknown Rx HYDROcodone/APAP 5-325 [[place] 1 each PO Q6HR PRN #10 tablet 07/21/19 Unknown Rx 5/325] Acetaminophen/Codeine [Tylenol 1 tab PO TID #12 tablet 08/31/19 Unknown Rx /Codeine # 3 tab] Chlorhexidine Mouthwash [Peridex] 15 ml MM BID #1 bottle 02/06/20 Unknown Rx Clindamycin [Clindamycin CAP] 300 mg PO Q8H #21 cap 02/06/20 Unknown Rx Ibuprofen [Motrin 600 MG tab] 600 mg PO Q8H PRN #20 tablet 02/06/20 Unknown Rx Permethrin [Nix LIQUID] 1 applic TP ONCE #1 bottle 08/15/20 Unknown Rx hydrOXYzine HCL [Atarax] 25 mg PO Q6HR PRN #20 tablet 08/15/20 Unknown Rx predniSONE [Deltasone] 20 mg PO QDAY #7 tab 08/15/20 Unknown Rx Sulfamethoxazole/Trimethoprim 1 each PO BID 10 Days #20 tablet 08/24/20 Unknown Rx [Bactrim DS TAB] Allergies/Adverse reactions: Allergies Allergy/AdvReac Type Severity Reaction Status Date / Time diphenhydramine Allergy Unknown Verified 12/31/21 08:36 [From Benadryl] tramadol Allergy Itching Verified 12/31/21 08:36 ED Review of Systems ROS: Stated complaint: HIT HEAD/ HEADACHE/VOMITING/DIZZY Other details as noted in HPI Comment: All other systems reviewed and negative ED Past Medical Hx - Past Medical History Previous Medical History?: Yes Hx Hypertension: Yes Additional medical history: Broken Right Knee cap 09/28/18, Boils - Surgical History Past Surgical History?: Yes Additional Surgical History: , tubaligation - Family History Family history: no significant - Social History Smoking Status: Current Every Day Smoker Substance Use Type: None - Medications Home Medications: Home Medications Medication Instructions Recorded Confirmed Last Taken Type Permethrin 5% [Acticin 5% CREAM] 1 applicatio TP ONCE #1 tube 08/27/18 Unknown Rx Piperonyl Butoxide/Pyrethrins [Rid 177 ml TP ONCE #1 bottle 08/27/18 Unknown Rx Essential Lice Kit] Triamcinolone Aceton 0.1% (Nf) 1 applic TP BID 14 Days #1 tube 08/27/18 Unknown Rx [Kenalog (NF)] hydrOXYzine HCL [Atarax] 25 mg PO Q6HR PRN #30 tablet 08/27/18 Unknown Rx Ibuprofen [Ibu] 800 mg PO Q8H PRN #20 tablet 08/31/18 Unknown Rx Ondansetron [Zofran Odt] 4 mg PO Q8HR #10 tab.rapdis 08/31/18 Unknown Rx Ketorolac [Toradol] 10 mg PO Q6H PRN #14 tablet 10/07/18 Unknown Rx oxyCODONE /ACETAMINOPHEN [Percocet 1 tab PO Q6HR PRN #8 tablet 10/13/18 Unknown Rx 5/325 mg] Acetaminophen [Acetaminophen TAB] 1,000 mg PO Q6HR PRN #30 tablet 11/07/18 Unknown Rx Dicyclomine [Bentyl] 10 mg PO QID PRN #30 capsule 11/07/18 Unknown Rx Ondansetron [Zofran Odt] 4 mg PO Q8HR PRN #12 tab.rapdis 11/07/18 Unknown Rx HYDROcodone/APAP 5-325 [[place] 1 each PO Q6HR PRN #10 tablet 07/21/19 Unknown Rx 5/325] Acetaminophen/Codeine [Tylenol 1 tab PO TID #12 tablet 08/31/19 Unknown Rx /Codeine # 3 tab] Chlorhexidine Mouthwash [Peridex] 15 ml MM BID #1 bottle 02/06/20 Unknown Rx Clindamycin [Clindamycin CAP] 300 mg PO Q8H #21 cap 02/06/20 Unknown Rx Ibuprofen [Motrin 600 MG tab] 600 mg PO Q8H PRN #20 tablet 02/06/20 Unknown Rx Permethrin [Nix LIQUID] 1 applic TP ONCE #1 bottle 08/15/20 Unknown Rx hydrOXYzine HCL [Atarax] 25 mg PO Q6HR PRN #20 tablet 08/15/20 Unknown Rx predniSONE [Deltasone] 20 mg PO QDAY #7 tab 08/15/20 Unknown Rx Sulfamethoxazole/Trimethoprim 1 each PO BID 10 Days #20 tablet 08/24/20 Unknown Rx [Bactrim DS TAB] ED Physical Exam - General Limitations: No Limitations General appearance: alert, in no apparent distress - Head Head exam: Present: atraumatic, normocephalic - Eye Eye exam: Present: normal appearance - ENT ENT exam: Present: mucous membranes moist - Neck Neck exam: Present: normal inspection - Respiratory Respiratory exam: Present: normal lung sounds bilaterally. Absent: respiratory distress - Cardiovascular Cardiovascular Exam: Present: regular rate, normal rhythm. Absent: systolic murmur, diastolic murmur, rubs, gallop - GI/Abdominal GI/Abdominal exam: Present: soft, normal bowel sounds - Extremities Exam Extremities exam: Present: normal inspection - Back Exam Back exam: Present: normal inspection - Neurological Exam Neurological exam: Present: alert, oriented X3 - Psychiatric Psychiatric exam: Present: normal affect, normal mood - Skin Skin exam: Present: warm, dry, intact, normal color. Absent: rash ED Course Vital Signs 12/31/21 08:36 Temperature 98.3 F Pulse Rate 78 Respiratory 16 Rate Blood Pressure 113/84 O2 Sat by Pulse 100 Oximetry - Radiology Data Radiology results: report reviewed, image reviewed No acute process - Medical Decision Making Vital Signs 12/31/21 08:36 Temperature 98.3 F Pulse Rate 78 Respiratory 16 Rate Blood Pressure 113/84 O2 Sat by Pulse [address] normal. I have educated patient about repetitive head injury. And given her referral to neurology. Patient being discharged home with discharge planning care including diet, acti vity, medications and follow-up. She verbalizes understanding of plan of care. On discharge patient is ambulatory and neurologically intact with normal vital signs. - Differential Diagnosis Rule out closed head injury - Core Measures Measure Exclusions: not indicated - NEXUS Criteria Focal neurological deficit present: No Midline spinal tenderness present: No Altered level of consciousness: No Intoxication present: No Distracting injury present: No NEXUS results: C-Spine can be cleared clinically by these results. Imaging is not required. Critical care attestation.: If time is entered above; I have spent that time in minutes in the direct care of this critically ill patient, excluding procedure time. ED Disposition Clinical Impression: CHI (closed head injury) Qualifiers: Encounter type: initial encounter Qualified Code(s): S09.90XA - Unspecified injury of head, initial encounter Fall Qualifiers: Encounter type: initial encounter Qualified Code(s): W19.XXXA - Unspecified fall, initial encounter Disposition: HOME / SELF CARE / HOMELESS Is pt being admited?: No Does the pt Need Aspirin: No Condition: Stable Instructions: Head Injury, Adult, [id number] Additional Instructions: follow up with neurology referral below motrin or tylenol for pain CT NORMAL Referrals: MIKEL BROCK MD [Staff Physician] - 3-5 Days Forms: Work/School Release Form(ED) Time of Disposition: 09:50
--- NOTE | 2021-12-31 09:37 | Cat Scan Report ---
CT HEAD WITHOUT CONTRAST INDICATION / CLINICAL INFORMATION: pain sp fall. TECHNIQUE: All CT scans at this location are performed using CT dose reduction for ALARA by means of automated exposure control. COMPARISON: None available. FINDINGS: CEREBRAL/CEREBELLAR PARENCHYMA: No significant abnormality. No acute territorial infarct. No signific ant atrophy for patient age. HEMORRHAGE: No acute intra-axial hemorrhage or extra-axial fluid collection. MASS: No mass or mass effect. VENTRICULAR SYSTEM: Normal in size and morphology for the patient's age. ORBITS: Normal as visualized. SOFT TISSUES/SKULL: No scalp hematoma or skull fracture. PARANASAL SINUSES/MASTOID AIR CELLS: Normal as visualized. IMPRESSION: 1. Normal CT brain without acute intracranial process. Signer Name: Lobo Lazar MD Signed: 12/31/2021 9:33 AM Workstation Name: [id number]
[2021-12-31 10:51] VITALS: BP 116/70
== END 2021-12-31 10:51 | disposition home or self-care (01) ==
LOC: ED 08:09
DX: S09.90XA Unspecified injury of head, initial encounter (principal); I10 Essential (primary) hypertension; F17.200 Nicotine dependence, unspecified, uncomplicated; Z98.890 Other specified postprocedural states; Z98.51 Tubal ligation status; Z88.6 Allergy status to analgesic agent; Z88.8 Allergy status to other drugs, medicaments and biological substances; Z79.899 Other long term (current) drug therapy; W18.39XA Other fall on same level, initial encounter; Y93.89 Activity, other specified; Y92.89 Other specified places as the place of occurrence of the external cause; Y99.8 Other external cause status
CPT/HCPCS: 70450; 99283